=== PATIENT | female | born 1975 | race Caucasian/White ===

== ENCOUNTER → 2018-07-14 | Outpatient (CLI) | payer MEDICARE ==
[~2018-07-14] MED LIST: ALPR2TAB8 PO; MULTIVITAMIN PO; QUET300T7 PO; SERT100T32 PO; TOPI100T8 PO; ZOLP10TA5 PO; [UNRECOGNIZED DRUG - OTHER] PO
== END | disposition home or self-care (01) ==
LOC: CFH 12:28
PROVIDERS: ATTEND Family Medicine
DX: N64.4 Mastodynia (principal)
CPT/HCPCS: 76642; 77066; G0279

== ENCOUNTER 2018-08-19 20:12 | Emergency (ER) | payer MEDICARE ==
[~2018-08-19] VITALS: Ht 165.1 cm; Wt 85.9 kg
[2018-08-19] MEDS ORDERED: OXYMETAZOLINE NASAL SPRAY 0.05%, 15ML NAS ONE (20:30)
--- NOTE | 2018-08-19 20:30 | NUR ---
FIRST CONTACT WITH PT. PT HAS EPISTAXIS SINCE 0900 TODAY OFF AND ON, IS NOW CONSTANT. NOT ON BLOOD THINNERS. C/O MORILLO ON RIGHT FOREHEAD. HIT RIGHT SIDE HEAD LAST NIGHT ON NIGHT STAND. NO LOC AFTER FALL. PT'S AOX4. RESPS EVEN AND UNLABORED.
[2018-08-19] MEDS ORDERED: OXYMETAZOLINE NASAL SPRAY 0.05%,30ML ONE (20:34)
--- NOTE | 2018-08-19 20:39 | NUR ---
pt medicated per emar. pt tolerated well. edmd at bedside to assess at this time.
--- NOTE | 2018-08-19 21:06 | NUR ---
PT STATES STILL BLEEDING AT THIS TIME. EDMD NOTIFIED.
[2018-08-19 22:22] VITALS: BP 94/50
--- NOTE | 2018-08-19 22:23 | NUR ---
pt given dc instructions. pt's aox4. resps even and unlabored. pt amb to dc with steady gait. no acute distress at dc.
== END 2018-08-19 22:25 | disposition home or self-care (01) ==
LOC: ED 21:19
DX: R04.0 Epistaxis (principal); Z90.710 Acquired absence of both cervix and uterus
CPT/HCPCS: 99282

== ENCOUNTER 2018-10-04 07:22 | Emergency (ER) | payer MEDICARE ==
[~2018-10-04] VITALS: Ht 165.1 cm; Wt 89.9 kg
[2018-10-04 07:25] VITALS: BP 118/72
--- NOTE | 2018-10-04 07:46 | NUR ---
PET AMBASSADOR: PT TO ROOM FROM LOBBY,
--- NOTE | 2018-10-04 07:47 | NUR ---
KAREN RN: PT PRESENTED TO ED D/T RIGHT SHOULDER PAIN AFTER DROPPING CURLING IRON ON RIGHT SHOULDER 10 DAYS AGO. PT STATES HIT TOWEL RACK WITH RIGHT SHOULDER. FULL ROM.
--- NOTE | 2018-10-04 08:22 | NUR ---
PT AMBULATORY WITH STEADY GAIT TO IMAGING.
[2018-10-04] MEDS ORDERED: KETOROLAC 30 MG/1 ML ONE (08:24)
[2018-10-04] MEDS ORDERED: KETOROLAC 30 MG/1 ML IM ONE (08:30)
--- NOTE | 2018-10-04 09:36 | NUR ---
FLOAT RN: PT DISCHARGED HOME IN A STABLE CONDITION. DC INSTRUCTIONS WERE DISCUSSED WITH PT. PT VERBALIZED UNDERSTANDING. NO FURTHER QUESTIONS OR CONCERNS WERE EXPRESSED AT THAT TIME. PT AMBULATED WITH RN TO DC DESK STEADY GAIT.
== END 2018-10-04 09:37 | disposition home or self-care (01) ==
LOC: ED 09:21
DX: M25.521 Pain in right elbow (principal); M77.11 Lateral epicondylitis, right elbow; F31.9 Bipolar disorder, unspecified
CPT/HCPCS: 73080; 96372; 99283; J1885

== ENCOUNTER 2018-11-25 16:55 | Emergency (ER) | payer MEDICARE ==
[~2018-11-25] VITALS: Ht 167.6 cm; Wt 87.7 kg
[2018-11-25 19:38] VITALS: BP 107/71
== END 2018-11-25 19:55 | disposition home or self-care (01) ==
LOC: ED 19:17
DX: R10.32 Left lower quadrant pain (principal); R10.84 Generalized abdominal pain; R11.2 Nausea with vomiting, unspecified; F43.10 Post-traumatic stress disorder, unspecified; F31.9 Bipolar disorder, unspecified; Z90.710 Acquired absence of both cervix and uterus
CPT/HCPCS: 36415; 74177; 80053; 81003; 83690; 84703; 85025; 85610; 96374; 96375; 99284; J1170; J2405; Q9967

== ENCOUNTER → 2019-07-12 | Outpatient (CLI) | payer MEDICARE ==
[~2019-07-12] MED LIST changes: +ACYC-114 PO; +ALPR1TAB2 PO; +AMPH20CA7 PO; +ARIP30TA4 PO; +PRAZ1CAP2 PO
== END | disposition home or self-care (01) ==
LOC: RAD 08:07
PROVIDERS: ATTEND Internal Medicine Gastroenterology
DX: K21.9 Gastro-esophageal reflux disease without esophagitis (principal); K52.9 Noninfective gastroenteritis and colitis, unspecified; Z90.49 Acquired absence of other specified parts of digestive tract
CPT/HCPCS: 74181

== ENCOUNTER 2019-12-15 15:48 | Emergency (ER) | payer MEDICARE ==
[~2019-12-15] VITALS: Ht 165.1 cm; Wt 92.0 kg
--- NOTE | 2019-12-15 16:02 | NUR ---
PT BIB [facility], PT WITH C/O LLQ ABD PAIN /. PAIN BEGAN LIGHT DISCOMFORT THREE DAYS AGO. PT DENIES N/V/D. PT ARRIVES DIAPHORETIC. PT DESCRIBES PAIN STABBING. PT WITH HX OF OVARIAN CYST WITH RUPTURE, KIDNEY STONES. PT STATES HAVING INCREASED URINARY FREQUENCY, NO DYSURIA REPORTED. PT DENIES FEVERS. PT STATES ALSO HAVING "ANNE HORSE" PAIN IN STERNAL AREA, DENIES SOB PT TO BP, CONT PULSE OX, CARD MONITOR.
[2019-12-15] MEDS ORDERED: SODIUM CHLORIDE FLUSH 10ML SYR IVF ONE (17:00)
[2019-12-15] MEDS ORDERED: ONDANSETRON 2MG/ML, 2ML IVPush ONE (17:00)
[2019-12-15] MEDS ORDERED: ONDANSETRON 2MG/ML, 2ML ONE (17:07)
[2019-12-15] MEDS ORDERED: HYDROmorphone 1 MG/ML, 1ML INJ ONE ×2 (17:07→18:09)
[2019-12-15] MEDS: HYDROmorphone 1 MG/ML, 1ML INJ IVPush PRN ×2 (17:10→18:12)
--- NOTE | 2019-12-15 17:11 | NUR ---
PT MEDICATED PER MAR, VSS, LABS DRAWN US CALLED TO EXPEDITE US ABD. NO OTHER NEEDS AT THIS TIME
[2019-12-15 17:29] LABS: BASOPHILS # (AUTO) 0.05 x10^3/uL (0-0.1); BASOPHILS % (AUTO) 1 % (0-1); EOSINOPHILS # (AUTO) 0.07 x10^3/uL (0-0.4); EOSINOPHILS % (AUTO) 1 % (1-7); LYMPHOCYTES # (AUTO) 2.97 x10^3/uL (1-3.4); LYMPHOCYTES % (AUTO) 33 % (22-44); MD NO; MEAN CORPUSCULAR HEMOGLOBIN 30.1 pg (27.0-34.8); MEAN CORPUSCULAR HGB CONC 33.4 g/dL (32.4-35.8); MEAN CORPUSCULAR VOLUME 90.3 fL (80-100); MEAN PLATELET VOLUME 8.3 fL (7.4-10.4); MONOCYTES # (AUTO) 0.59 x10^3/uL (0.2-0.8); MONOCYTES % (AUTO) 7 % (2-9); NEUTROPHILS # (AUTO) 5.23 x10^3/uL (1.8-6.8); NEUTROPHILS % (AUTO) 59 % (42-75); PLATELET COUNT 348 x10^3/uL (130-400); RED BLOOD COUNT 4.93 x10^6/uL (3.82-5.3); RED CELL DISTRIBUTION WIDTH 12.9 % (9.6-15.2)
[2019-12-15 17:57] LABS: MICROSCOPIC AUTO
--- NOTE | 2019-12-15 18:20 | NUR ---
PT REMAINS IN EXTREME PAIN NOW 11/10, PT GIVEN ADDITIONAL PAIN MEDICATION PER JUL, UPDATED ERMD, CT ABD ORDERED. VSS
[2019-12-15] MEDS ORDERED: HYDROmorphone 2 MG/ML, 1ML IVPush PRN (18:30)
[2019-12-15] MEDS ORDERED: OMNIPAQUE 350 MG/ML, 100ML BOTTLE ONE (18:46)
--- NOTE | 2019-12-15 18:55 | NUR ---
REPORT FROM ERWIN ASSUMING CARE OF PT AT THIS TIME. PT REPORTS IMPROVEMENT IN PAIN. AWAITING CT RESULTS
[2019-12-15] MEDS ORDERED: KETOROLAC 30 MG/1 ML ONE (19:15)
[2019-12-15] MEDS ORDERED: DIAZEPAM 5 MG/ML, 2ML ONE (19:15)
--- NOTE | 2019-12-15 19:22 | NUR ---
PT C/O PAIN 11/10, PT MEDICATED PER JUL 06 RIGHTS VERIFIED. VSS UPDATED
[2019-12-15] MEDS ORDERED: KETOROLAC 30 MG/1 ML IVPush ONE (19:30)
[2019-12-15] MEDS ORDERED: DIAZEPAM 5 MG/ML, 2ML IVPush ONE (19:30)
[2019-12-15] MEDS ORDERED: HYDROmorphone 2 MG/ML, 1ML ONE (19:58)
[2019-12-15 20:02] VITALS: BP 126/87
--- NOTE | 2019-12-15 20:02 | NUR ---
PT CONTINUES TO REPORT PAIN 11/10 PT MEDICATED PER MAR FOR PAIN 5 RIGHTS VERIFIED NADN. CALL LIGHT IN REACH VSS
[2019-12-15] MEDS ORDERED: HYDROcodone/APAP 5/325 TABLET ONE (20:44)
--- NOTE | 2019-12-15 20:56 | NUR ---
Patient/Caregiver given discharge instructions and they have confirmed that they understand the instructions. Patient ambulatory with steady gait.
[2019-12-15] MEDS ORDERED: HYDROcodone/APAP 5/325 TABLET PO ONE (21:00)
== END 2019-12-15 20:57 | disposition home or self-care (01) ==
LOC: ED 20:50
DX: M54.5 Low back pain (principal); R10.9 Unspecified abdominal pain; R10.32 Left lower quadrant pain; R94.31 Abnormal electrocardiogram [ECG] [EKG]; Z90.710 Acquired absence of both cervix and uterus
CPT/HCPCS: 36415; 74177; 76830; 81001; 85025; 86850; 86900; 93005; 96374; 96375; 96376; 99285; J1170; J1885; J2405; J3360; Q9967

== ENCOUNTER → 2020-03-15 | Outpatient (CLI) | payer MEDICARE ==
[~2020-03-15] MED LIST changes: +AMPH30TA2 PO; +ESTR0.9T PO; +OXCA600T3 PO; +PRAZ2CAP2 PO; +[UNRECOGNIZED DRUG - OTHER] PO; +calcium PO; +effexor PO; +zocor PO
[2020-03-15 14:53] LABS: BASOPHILS % (AUTO) 1 % (0-1); EOSINOPHILS % (AUTO) 2 % (1-7); LYMPHOCYTES % (AUTO) 39 % (22-44); MEAN CORPUSCULAR HEMOGLOBIN 29.6 pg (27.0-34.8); MEAN CORPUSCULAR HGB CONC 32.9 g/dL (32.4-35.8); MEAN PLATELET VOLUME 7.9 fL (7.4-10.4); MONOCYTES % (AUTO) 6 % (2-9); NEUTROPHILS % (AUTO) 52 % (42-75); PLATELET COUNT 272 x10^3/uL (130-400); RED BLOOD COUNT 4.32 x10^6/uL (3.82-5.3); RED CELL DISTRIBUTION WIDTH 13.3 % (9.6-15.2)
[2020-03-15 14:57] LABS: MD NO
[2020-03-15 15:00] LABS: ANION GAP 6 mmol/L (5-15); CALCIUM 9.1 mg/dL (8.5-10.1); CHLORIDE 106 mmol/L (98-107); CREATININE 0.73 mg/dL (0.55-1.02)
[2020-03-15 15:35] LABS: INTERNATIONAL NORMALIZED RATIO 0.97 (0.93-1.1); PROTHROMBIN TIME 10.3 Seconds (9.6-11.5)
[2020-03-15 15:56] LABS: HCT (SEDRATE) 38.9 % (34.6-47.8)
== END | disposition home or self-care (01) ==
LOC: STAR 13:24
PROVIDERS: ATTEND Orthopaedic Surgery Orthopaedic Surgery of the Spine
DX: Z01.812 Encounter for preprocedural laboratory examination (principal); Z20.828 Contact with and (suspected) exposure to other viral communicable diseases; M54.2 Cervicalgia
CPT/HCPCS: 36415; 71046; 80048; 83036; 85025; 85610; 85651; 85730; 87635; 93005

== ENCOUNTER 2020-03-27 00:40 | Emergency (ER) | payer MEDICARE ==
[~2020-03-27] VITALS: Ht 165.1 cm; Wt 93.0 kg
[~2020-03-27 00:40] MED LIST changes: +HYDR-3241 PO; +HYDR4TAB48 PO; +METH750T87 PO; +SIMV10TA PO
--- NOTE | 2020-03-27 01:32 | NUR ---
PT IN [facility] IN [facility] WITH SPOUSE AT BS. DR PARISI AT BS AT THIS TIME FOR HISTORY AND ASSESSMENT OF PT.
[2020-03-27] MEDS ORDERED: HYDROmorphone 1 MG/ML, 1ML INJ ONE (01:52)
[2020-03-27] MEDS ORDERED: ONDANSETRON 2MG/ML, 2ML ONE (01:52)
[2020-03-27] MEDS ORDERED: ONDANSETRON 2MG/ML, 2ML IVPush ONE (02:00)
--- NOTE | 2020-03-27 02:01 | NUR ---
PT MEDICATED PER MAR.
[2020-03-27] MEDS: HYDROmorphone 2 MG/ML, 1ML IVPush PRN ×2 (02:02→04:29)
[2020-03-27 02:03] LABS: BASOPHILS % (AUTO) 1 % (0-1); EOSINOPHILS % (AUTO) 2 % (1-7); LYMPHOCYTES % (AUTO) 36 % (22-44); MEAN CORPUSCULAR HEMOGLOBIN 30.3 pg (27.0-34.8); MEAN CORPUSCULAR HGB CONC 33.7 g/dL (32.4-35.8); MEAN PLATELET VOLUME 7.9 fL (7.4-10.4); MONOCYTES % (AUTO) 6 % (2-9); NEUTROPHILS % (AUTO) 56 % (42-75); PLATELET COUNT 302 x10^3/uL (130-400); RED BLOOD COUNT 4.27 x10^6/uL (3.82-5.3); RED CELL DISTRIBUTION WIDTH 12.6 % (9.6-15.2)
[2020-03-27 02:05] LABS: MD NO
[2020-03-27 02:09] LABS: ALBUMIN 3.2 g/dL (3.4-5.0); ANION GAP 7 mmol/L (5-15); CALCIUM 8.9 mg/dL (8.5-10.1); CHLORIDE 103 mmol/L (98-107); CREATININE 0.92 mg/dL (0.55-1.02)
--- NOTE | 2020-03-27 02:57 | NUR ---
PT TO MRI VIA [facility] AT THIS TIME.
[2020-03-27] MEDS ORDERED: HYDROmorphone 2 MG/ML, 1ML ONE ×2 (04:26→05:22)
--- NOTE | 2020-03-27 04:29 | NUR ---
pt medicated per mar for pain at this time.
[2020-03-27] MEDS ORDERED: KETOROLAC 30 MG/1 ML ONE (05:22)
--- NOTE | 2020-03-27 05:26 | NUR ---
pt medicated per jul. dr huang at bs.
[2020-03-27] MEDS ORDERED: HYDROmorphone 2 MG/ML, 1ML IVPush PRN (05:30)
[2020-03-27] MEDS ORDERED: KETOROLAC 30 MG/1 ML IVPush ONE (05:30)
--- NOTE | 2020-03-27 05:44 | NUR ---
PT D/C WITH D/C SUMMARY AND SCRIPTS. ALL QUESTIONS ANSWERED. PIV D/C WITH TIP INTACT. PT DENIES ANY OTHER NEEDS AND AMBULATES TO REGISTRATION DESK WITH STEADY GAIT FOR D/C HOME WITH SPOUSE. PT VSS AND UPDATED IN EMR PRIOR TO PT D/C.
[2020-03-27 05:45] VITALS: BP 121/81
== END 2020-03-27 06:18 | disposition home or self-care (01) ==
LOC: ED 03:27
DX: M54.2 Cervicalgia (principal); Z90.710 Acquired absence of both cervix and uterus
CPT/HCPCS: 36415; 72141; 80048; 82040; 85025; 96374; 96375; 96376; 99284; J1170; J1885; J2405

== ENCOUNTER 2020-05-21 15:42 | Emergency (ER) | payer MEDICARE ==
[~2020-05-21] VITALS: Ht 166.4 cm; Wt 91.7 kg
--- NOTE | 2020-05-21 18:59 | NUR ---
ASSUMED CARE OF PATIENT. PATIENT REPORTS SHE HAD A CERBICAL SPINE FUSION ON 03/19/20. PT RECENTLY HAD HER NECK BRACE REMOVED. TODAY, PATIENT IS HAVING LEFT SIDED NECK PAIN, LOW BACK PAIN THAT GOES DOWN LEGS. "IT FEELS LIKE IT IS BURNING." VS STABLE. NO ACUTE DISTRESS NOTED. CALL LIGHT IN PLACE. REPORT GIVEN TO SOFIE FOR BREAK.
--- NOTE | 2020-05-21 19:28 | NUR ---
BREAK RN: CHART UP FOR RECHECK.
--- NOTE | 2020-05-21 19:47 | NUR ---
DR PARISI IN ROOM
[2020-05-21] MEDS ORDERED: DIAZEPAM 5 MG/ML, 10ML VIAL IV ONE (20:00)
[2020-05-21] MEDS ORDERED: LIDODERM 5% PATCH TD ONE ×2 (20:00→20:23)
[2020-05-21] MEDS ORDERED: KETOROLAC 30 MG/1 ML IVPush ONE (20:00)
[2020-05-21] MEDS ORDERED: ACETAMINOPHEN 500 MG TABLET PO ONE (20:00)
[2020-05-21] MEDS ORDERED: KETOROLAC 30 MG/1 ML ONE (20:23)
[2020-05-21] MEDS ORDERED: DIAZEPAM 5 MG/ML, 2ML ONE (20:23)
[2020-05-21] MEDS ORDERED: ACETAMINOPHEN 500 MG TABLET ONE (20:23)
[2020-05-21 20:24] LABS: BASOPHILS % (AUTO) 0 % (0-1); EOSINOPHILS % (AUTO) 1 % (1-7); LYMPHOCYTES % (AUTO) 29 % (22-44); MEAN CORPUSCULAR HEMOGLOBIN 29.8 pg (27.0-34.8); MEAN CORPUSCULAR HGB CONC 33.4 g/dL (32.4-35.8); MONOCYTES % (AUTO) 5 % (2-9); NEUTROPHILS % (AUTO) 65 % (42-75); PLATELET COUNT 267 x10^3/uL (130-400); RED CELL DISTRIBUTION WIDTH 13.1 % (9.6-15.2)
[2020-05-21 20:26] LABS: ALBUMIN 3.6 g/dL (3.4-5.0); ANION GAP 10 mmol/L (5-15); CALCIUM 8.3 mg/dL (8.5-10.1); CHLORIDE 106 mmol/L (98-107); CREATININE 0.78 mg/dL (0.55-1.02)
[2020-05-21 20:31] LABS: MD NO
--- NOTE | 2020-05-21 20:34 | NUR ---
tech writer in room doing screening
--- NOTE | 2020-05-21 20:37 | NUR ---
vs stable pt going to MRI
--- NOTE | 2020-05-21 21:39 | NUR ---
pt back from MRI. Family at bedside. vs stable. call light in place. will continue to monitor.
--- NOTE | 2020-05-21 21:44 | NUR ---
DR PARISI IN ROOM UPDATING PATIENT
[2020-05-21] MEDS ORDERED: HYDROmorphone 1 MG/ML, 1ML INJ ONE (21:53)
[2020-05-21] MEDS ORDERED: ONDANSETRON 2MG/ML, 2ML ONE (21:53)
--- NOTE | 2020-05-21 21:58 | NUR ---
PT Watching tv. family at bedside. pt medicated for 9/10 pain. vs stable. call light in place. will continue to monitor.
[2020-05-21] MEDS ORDERED: ONDANSETRON 2MG/ML, 2ML IVPush ONE (22:00)
[2020-05-21] MEDS ORDERED: HYDROmorphone 2 MG/ML, 1ML IVPush PRN (22:00)
--- NOTE | 2020-05-21 22:49 | NUR ---
DR PARISI IN ROOM UPDATING PATIENT.
[2020-05-21 23:01] VITALS: BP 148/68
--- NOTE | 2020-05-21 23:15 | NUR ---
PER DR PARISI NO OBSERVATION ORDER NEEDED. PT IS 96% RA. NO ACUTE DISTRESS. VS STABLE. PT IS A&OX4. PT REPORTS SHE IS READY FOR DISCHARGE. PT HAS A RIDE HOME FORM . PT DISCHARGED BY DR PARISI.
== END 2020-05-21 20:40 | disposition home or self-care (01) ==
LOC: ED 20:34
DX: S39.012A Strain of muscle, fascia and tendon of lower back, initial encounter (principal); M54.2 Cervicalgia; M48.00 Spinal stenosis, site unspecified; Z90.710 Acquired absence of both cervix and uterus; X58.XXXA Exposure to other specified factors, initial encounter; Y93.89 Activity, other specified; Y92.89 Other specified places as the place of occurrence of the external cause; Y99.8 Other external cause status
CPT/HCPCS: 36415; 72050; 72141; 72148; 80048; 82040; 85025; 96374; 96375; 99285; J1170; J1885; J2405

== ENCOUNTER 2020-06-05 19:03 | Emergency (ER) | payer MEDICARE ==
[~2020-06-05] VITALS: Ht 165.1 cm; Wt 90.0 kg
--- NOTE | 2020-06-05 19:11 | NUR ---
PT BIB EMS FOR CP. PT SAID ''I WOKE UP WITH SWELLING IN MY ANKLES WHICH BACILIO NEVER HAD BEFORE AND I ALSO HAD SOME MINOR CP. I WENT TO AND THE DOC THERE FELT I SHOULD I GO TO THE ER FOR HR AND CP." PT GOT 324 MG ASPIRIN AND 0.4SL NITRO BUZZLE BUFFER. PT HAS NO CARDIAC HX. PT RESTING IN GURNEY. EKG COMPLETE. MD IS BEDSIDE FOR ASSESSMENT. CONNECTED TO ALL MONITORING EQUIPMENT
[2020-06-05] MEDS ORDERED: SODIUM CHLORIDE FLUSH 10ML SYR IVF ONE (19:30)
[2020-06-05] MEDS ORDERED: OMEP-110 PO (19:38)
[2020-06-05] MEDS ORDERED: PREG75CA68 PO (19:38)
[2020-06-05] MEDS ORDERED: NAPR-685 PO (19:38)
[2020-06-05] MEDS ORDERED: LURA20TA PO (19:38)
[2020-06-05] MEDS ORDERED: HYDR-826 PO (19:38)
[2020-06-05] MEDS ORDERED: AMPH15TA2 PO (19:38)
[2020-06-05 19:40] LABS: BASOPHILS % (AUTO) 1 % (0-1); EOSINOPHILS % (AUTO) 2 % (1-7); LYMPHOCYTES % (AUTO) 46 % (22-44); MEAN CORPUSCULAR HEMOGLOBIN 30.7 pg (27.0-34.8); MEAN CORPUSCULAR HGB CONC 34.4 g/dL (32.4-35.8); MEAN PLATELET VOLUME 7.2 fL (7.4-10.4); MONOCYTES % (AUTO) 9 % (2-9); NEUTROPHILS % (AUTO) 42 % (42-75); PLATELET COUNT 301 x10^3/uL (130-400); RED BLOOD COUNT 4.05 x10^6/uL (3.82-5.3); RED CELL DISTRIBUTION WIDTH 13.2 % (9.6-15.2)
--- NOTE | 2020-06-05 19:43 | NUR ---
med rec completed at this time. patient has binder with prescriptions meds secured in it. this was left in room
[2020-06-05 19:49] LABS: ANION GAP 9 mmol/L (5-15); CALCIUM 8.7 mg/dL (8.5-10.1); CHLORIDE 106 mmol/L (98-107); CREATININE 0.85 mg/dL (0.55-1.02)
[2020-06-05 19:52] LABS: TROPONIN I < 0.015 ng/mL (0.000-0.045)
[2020-06-05 19:53] LABS: MD NO
--- NOTE | 2020-06-05 20:19 | NUR ---
PT LAYING IN BED WITH NO SIGNS OR SYMPTOMS OF ACUTE DISTRESS NOTED RESPIRATIONS EVEN AND UNLABORED, ON STOCK CLIPPER WITH BED RIALS UP BILATERALLY AND LIGHTS LOW IN ROOM FOR COMFORT. PT COMPLAINING OF BILATERAL CHEST PAIN RATED 5/10. HEART RATE SINUS AND IN THE 80S ON THE MONITOR. IV SITE ASSESSED, FLUSHES WELL WITH NO EYTHEMA, REDNESS OR SWELLING NOTED. CALL LIGHT WITHIN REACH. PT DENIES NEED AT THIS TIME.
--- NOTE | 2020-06-05 20:45 | NUR ---
PT RESTING QUIETLY IN BED WITH EYES CLOSED AND LIGHTS OFF IN ROOM FOR COMFORT, RESPIRATIONS EVEN AND UNLABORED, SATTING WELL ON ROOM AIR. PT ON SMOKE AND FLAME SPECIALIST WITH BED RAILS UP BILATERALLY AND CALL LIGHT WITHIN REACH.
[2020-06-05] MEDS ORDERED: SODIUM CHLORIDE 0.9% 1,000ML IVBOLUS ONE (22:00)
[2020-06-05 22:16] LABS: FREE T4 (FREE THYROXINE) 0.54 ng/dL (0.76-1.46)
--- NOTE | 2020-06-05 22:44 | NUR ---
md in room to assess, pt in bed resting comfortably with even unlabored respirations, on pvc monitor, no signs or symptoms of acute distress noted. md noted that ivf was not flowing, rn in room to assess, site asymptomatic. this rn flushed the line with noted good flow of ivf resuming. pt denies pain at site. pt left in position of comfort with right arm straight to facilitate ivf flow, lights off in room for comfort and call light within reach
[2020-06-05 23:48] VITALS: BP 114/63
== END 2020-06-06 00:06 | disposition home or self-care (01) ==
LOC: ED 22:03
DX: R07.89 Other chest pain (principal); R06.02 Shortness of breath; I10 Essential (primary) hypertension; R94.31 Abnormal electrocardiogram [ECG] [EKG]; E78.00 Pure hypercholesterolemia, unspecified; Z88.9 Allergy status to unspecified drugs, medicaments and biological substances; Z90.710 Acquired absence of both cervix and uterus
CPT/HCPCS: 36415; 71045; 80048; 82040; 84439; 84443; 84484; 85025; 85379; 93005; 96360; 96361; 99285; J7030

== ENCOUNTER 2020-08-03 08:22 | Outpatient (CLI) | payer MEDICARE ==
[~2020-08-03 08:22] MED LIST changes: +AMPH15TA2 PO; +HYDR-826 PO; +LURA20TA PO; +NAPR-685 PO; +OMEP-110 PO; +PREG75CA68 PO
== END 2020-08-03 23:59 | disposition home or self-care (01) ==
LOC: CFH 08:22
PROVIDERS: ATTEND Internal Medicine Cardiovascular Disease
DX: I08.8 Other rheumatic multiple valve diseases (principal); R06.02 Shortness of breath
CPT/HCPCS: 93306

== ENCOUNTER 2020-10-02 19:30 | Emergency (ER) | payer MEDICARE ==
[~2020-10-02] VITALS: Ht 165.1 cm; Wt 95.7 kg
[~2020-10-02 19:30] MED LIST changes: -ACYC-114 PO; +ACYC-40 PO
--- NOTE | 2020-10-02 19:44 | NUR ---
ASSISTANT FIELD HOCKEY COACH: PT SEEN BY DANIELLE Becker NP IN TRIAGE. NO CODE NEURO PER PROVIDER.
[2020-10-02] MEDS ORDERED: ACETAMINOPHEN 500 MG TABLET PO ONE (20:00)
[2020-10-02] MEDS ORDERED: DIPHENHYDRAMINE 50 MG/ML, 1ML IVPush ONE (20:00)
[2020-10-02] MEDS ORDERED: SODIUM CHLORIDE 0.9% 1,000ML IVBOLUS ONE (20:00)
[2020-10-02] MEDS ORDERED: SODIUM CHLORIDE FLUSH 10ML SYR IVF ONE (20:00)
[2020-10-02] MEDS ORDERED: PROCHLORPERAZINE 5 MG/ML, 2ML IVPush ONE (20:00)
[2020-10-02] MEDS ORDERED: DIPHENHYDRAMINE 50 MG/ML, 1ML ONE (20:13)
[2020-10-02] MEDS ORDERED: PROCHLORPERAZINE 5 MG/ML, 2ML ONE (20:13)
[2020-10-02] MEDS ORDERED: ACETAMINOPHEN 500 MG TABLET ONE (20:13)
[2020-10-02 20:34] LABS: BASOPHILS % (AUTO) 1 % (0-1); EOSINOPHILS % (AUTO) 2 % (1-7); LYMPHOCYTES % (AUTO) 33 % (22-44); MD NO; MEAN CORPUSCULAR HEMOGLOBIN 30.1 pg (27.0-34.8); MEAN CORPUSCULAR HGB CONC 33.6 g/dL (32.4-35.8); MEAN PLATELET VOLUME 7.4 fL (7.4-10.4); MONOCYTES % (AUTO) 7 % (2-9); NEUTROPHILS % (AUTO) 58 % (42-75); PLATELET COUNT 330 x10^3/uL (130-400); RED BLOOD COUNT 4.29 x10^6/uL (3.82-5.3); RED CELL DISTRIBUTION WIDTH 14.3 % (9.6-15.2)
[2020-10-02 20:44] LABS: ALANINE AMINOTRANSFERASE 36 U/L (12-78); ALBUMIN 3.6 g/dL (3.4-5.0); ANION GAP 7 mmol/L (5-15); CALCIUM 9.4 mg/dL (8.5-10.1); CHLORIDE 105 mmol/L (98-107); CREATININE 1.19 mg/dL (0.55-1.02)
[2020-10-02 20:58] LABS: ALKALINE PHOSPHATASE 82 U/L (45-117); BILIRUBIN,TOTAL 0.2 mg/dL (0.2-1.0); TOTAL PROTEIN 8.2 g/dL (6.4-8.2)
[2020-10-02] MEDS ORDERED: DEXAMETHASONE 4 MG/ML, 1ML ONE (21:27)
[2020-10-02] MEDS ORDERED: MAGNESIUM SULFATE PMX 2GM/50ML 50 ML ONE (21:28)
[2020-10-02] MEDS ORDERED: KETOROLAC 30 MG/1 ML ONE (21:28)
[2020-10-02] MEDS ORDERED: KETOROLAC 30 MG/1 ML IVPush ONE (21:30)
[2020-10-02] MEDS ORDERED: MAGNESIUM SULFATE PMX 2GM/50ML 50 ML IV ONE (21:30)
[2020-10-02] MEDS ORDERED: DEXAMETHASONE 4 MG/ML, 1ML IVPush ONE (21:30)
--- NOTE | 2020-10-02 21:41 | NUR ---
PT RATES H/A 12/11. ADDITIONAL MEDS GIVEN. FAMILY AT BS. WILL CTM.
[2020-10-02 22:24] VITALS: BP 141/96
--- NOTE | 2020-10-02 22:24 | NUR ---
pt states feeling better, 08/11 currrently. up for re-eval.
== END 2020-10-02 23:03 | disposition home or self-care (01) ==
LOC: ED 21:19
DX: R51.9 Headache, unspecified (principal); R20.2 Paresthesia of skin; R42 Dizziness and giddiness; R94.31 Abnormal electrocardiogram [ECG] [EKG]; I10 Essential (primary) hypertension; E78.00 Pure hypercholesterolemia, unspecified; Z90.710 Acquired absence of both cervix and uterus
CPT/HCPCS: 36415; 70450; 80053; 85025; 93005; 96361; 96365; 96375; 99285; J0780; J1100; J1200; J1885; J3475; J7030

== ENCOUNTER → 2020-11-20 | Outpatient (CLI) | payer MEDICARE | END | disposition home or self-care (01) | LOC: RAD 07:09 | PROVIDERS: ATTEND Surgery | DX: Z01.818 Encounter for other preprocedural examination (principal); K21.9 Gastro-esophageal reflux disease without esophagitis; E66.9 Obesity, unspecified; Z68.35 Body mass index [BMI] 35.0-35.9, adult | CPT/HCPCS: 71046; 74240 ==